=== PATIENT | male | born 1955 | race Caucasian/White ===

== ENCOUNTER 2023-05-26 19:34 | Emergency (ER) | payer MEDICARE ==
[~2023-05-26] VITALS: Ht 177.8 cm; Wt 83.9 kg
[2023-05-26] MEDS ORDERED: ALBUTEROL/IPRATROPIUM 3 ML NEB NEB STA (19:46)
[2023-05-26] MEDS ORDERED: METHYLPREDNISOLONE SOD SUCC 125 MG/2ML VIAL IV STA (19:47)
[2023-05-26] MEDS ORDERED: ACETAMINOPHEN 325 MG TAB PO STA (19:50)
[2023-05-26] MEDS ORDERED: SODIUM CHLORIDE 0.9% 1000ML 1,000 ML IV STA ×2 (19:50→22:18)
[2023-05-26 20:45] LABS: BASOPHILS % 0.2 % (0.0-1.0); EOSINOPHILS % 0.2 % (0.0-6.0); HEMATOCRIT 37.7 % (38.2-49.6); HEMOGLOBIN 13.4 g/dL (14.0-18.0); LYMPHOCYTES # (AUTO) 1.7 (1.0-3.2); LYMPHOCYTES % 19.3 % (18.0-39.1); MEAN CORPUSCULAR HGB CONC 35.5 g/dL (31-35); MEAN CORPUSCULAR VOLUME 84.5 fL (81-99); MONOCYTES # (AUTO) 0.9 (0.2-0.8); MONOCYTES % 10.8 % (4.4-11.3); NEUTROPHILS % 69.2 % (38.7-80.0); PLATELET COUNT 268 x10e3/uL (140-360); RED BLOOD COUNT 4.46 x10e6/uL (4.3-5.7); RED CELL DISTRIBUTION WIDTH 12.8 % (11.7-14.4); WHITE BLOOD COUNT 8.64 x10e3/uL (4.8-10.8)
[2023-05-26 20:50] VITALS: PULSE 112; RESP 23; O2SAT 97
[2023-05-26 20:51] LABS: AMPHETAMINES SCREEN,URINE NEGATIVE (NEGATIVE); BENZODIAZEPINES SCREEN,URINE NEGATIVE (NEGATIVE); PHENCYCLIDINE SCREEN,URINE NEGATIVE (NEGATIVE)
[2023-05-26 21:01] LABS: ALBUMIN 3.9 g/dL (3.5-5.0); ANION GAP 15.5 mmol/L (8-16); CALCIUM 9.8 mg/dL (8.4-10.2); CREATININE, SERUM 1.1 mg/dL (0.72-1.25); POTASSIUM 4.5 mmol/L (3.5-5.1)
[2023-05-26 21:04] LABS: LIPASE 7 U/L (8-78)
[2023-05-26] MEDS ORDERED: IOPAMIDOL 370 MG/ML 100 ML INFUS..BTL INJ ONE (21:35)
[2023-05-26] MEDS ORDERED: AZITHROMYCIN250 MG PO (23:15)
[2023-05-26] MEDS ORDERED: VENTOLIN HFA18 GM INH (23:15)
[2023-05-26] MEDS ORDERED: PREDNISONE20 MG PO (23:15)
[2023-05-27 00:15] VITALS: BP 105/68; PULSE 83; RESP 16; TEMP 98.8; O2SAT 98
== END 2023-05-26 23:35 | disposition home or self-care (01) ==
LOC: ER 19:40
DX: R06.02 Shortness of breath (principal); J18.9 Pneumonia, unspecified organism; E87.1 Hypo-osmolality and hyponatremia; I10 Essential (primary) hypertension; J44.9 Chronic obstructive pulmonary disease, unspecified; Z20.822 Contact with and (suspected) exposure to COVID-19
CPT/HCPCS: 36415; 71260; 80053; 80307; 80320; 82550; 83605; 83690; 83880; 84484; 85025; 87040; 93005; 94640; 94799; 99284; J2543; J2930; J7030; Q9967; U0002